=== PATIENT | female | born 1965 | race American Indian/Alaskan Native ===

== ENCOUNTER 2017-09-28 14:01 | Emergency (ER) | payer OTHER ==
[2017-09-28 14:01] VITALS: BMI 40.4
[2017-09-28 14:24] VITALS: BP 131/88; PULSE 91; RESP 17; TEMP 98.1; O2SAT 100
--- NOTE | 2017-09-28 15:47 | ED PDOC ---
Arrival/HPI - General Chief Complaint: Back Pain Time Seen by Provider: 09/28/17 14:08 Historian: Patient - History of Present Illness Narrative History of Present Illness (Text): 09/28/17 15:30 A 52 year old female, whose past medical history includes osteoarthritis, presents to the emergency department complaining of strained lower back. 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 Patient notes pain is significant on left lower back without any referral. Patient has no other complaints. Denies trauma, altered sensation down the legs, or change in motor or gait. PMD: Dr. Chris Dailey 09/29/17 12:26 Time/Duration: Prior to Arrival Symptom Onset: Sudden Symptom Course: Unchanged Quality: Aching, Stabbing Severity Level: 6 Activities at Onset: Other (work) Context: Work Past Medical History - Provider Review Nursing Documentation Reviewed: Yes - Travel History Have you recently traveled outside [place] w/in the past 3 mons?: No - Past History Past History: No Previous - Infectious Disease Hx of Infectious Diseases: None - Tetanus Immunization Tetanus Immunization: Up to Date - Reproductive Currently : No - Cardiac Hx Cardiac Disorders: Yes Hx Hypertension: Yes - Pulmonary Hx Respiratory Disorders: Yes Hx Asthma: Yes (Started as a child) - Neurological Hx Neurological Disorder: No - HEENT Hx HEENT Disorder: No - Renal Hx Renal Disorder: No - Endocrine/Metabolic Hx Endocrine Disorders: No - Hematological/Oncological Hx Blood Disorders: No - Integumentary Hx Dermatological Disorder: No - Musculoskeletal/Rheumatological Hx Musculoskeletal Disorders: Yes - Gastrointestinal Hx Gastrointestinal Disorders: Yes Hx Gastroesophageal Reflux: Yes - Genitourinary/Gynecological Hx Genitourinary Disorders: No - Psychiatric Hx Psychophysiologic Disorder: No Hx Emotional Abuse: No Hx Physical Abuse: No Hx Substance Use: No - Surgical History Hx Orthopedic Surgery: Yes - Anesthesia Hx Anesthesia: Yes Hx Anesthesia Reactions: No Hx Malignant Hyperthermia: No - Suicidal Assessment Feels Threatened In Home Enviroment: No Family/Social History - Physician Review Nursing Documentation Reviewed: Yes Family/Social History: No Known Family HX Smoking Status: Never Smoked Hx Alcohol Use: Yes (SOCIALLY) Hx Substance Use: No Hx Substance Use Treatment: No Allergies/Home Meds Allergies/Adverse Reactions: Allergies No Known Allergies Allergy (Verified 09/16/16 08:50) Home Medications: Home Meds Medication Instructions Recorded Confirmed Furosemide [Lasix] 40 mg PO DAILY 05/28/12 09/28/17 Albuterol Sulfate [Albuterol 2 puff IH DAILY 04/16/13 09/28/17 Sulfate Hfa] Metoprolol Tartrate [Lopressor] 0 mg PO BID 09/16/16 09/28/17 Potassium Gluconate [Potassium] 0 mg PO DAILY 09/16/16 09/28/17 Review of Systems - Physician Review All systems were reviewed & negative as marked: Yes - Review of Systems Constitutional: absent: Other (no other complaints given by patient.) Eyes: Normal ENT: Normal Respiratory: Normal Cardiovascular: Normal Gastrointestinal: Normal Genitourinary Female: Normal Musculoskeletal: Back Pain (lower back strain while lifting patient here at [facility] [place]) Skin: Normal Neurological: Normal Endocrine: Normal Hemo/Lymphatic: Normal Psychiatric: Normal Physical Exam Vital Signs Reviewed: Yes Vital Signs Temp Pulse Resp BP Pulse Ox 09/28/17 14:23 98.1 F 91 H 17 131/88 100 Temperature: Afebrile Blood Pressure: Normal Pulse: Regular Respiratory Rate: Normal Appearance: Positive for: Well-Appearing Pain Distress: None Mental Status: Positive for: Alert and Oriented X 3 - Systems Exam Head: Present: Atraumatic, Normocephalic Pupils: Present: PERRL Extroacular Muscles: Present: EOMI Conjunctiva: Present: Normal Mouth: Present: Moist Mucous Membranes Neck: Present: Normal Range of Motion Respiratory/Chest: Present: Clear to Auscultation, Good Air Exchange. No: Respiratory Distress, Accessory Muscle Use Cardiovascular: Present: Regular Rate and Rhythm, Normal S1, S2. No: Murmurs Abdomen: Present: Normal Bowel Sounds. No: Tenderness, Distention, Peritoneal Signs Back: Present: Paraspinal Tenderness (lumbar paraspinal tenderness on left side) Upper Extremity: Present: NORMAL PULSES (+2 ) Lower Extremity: Present: NORMAL PULSES (+2), Tenderness (tenderness to SI joint ), Neurovascularly Intact, Other (reflexes +2 bilaterally; negative straight leg test; motor strength 5:5 x 4.) Neurological: Present: GCS=15, CN II-XII Intact, Speech Normal Skin: Present: Warm, Dry, Normal Color. No: Rashes Psychiatric: Present: Alert, Oriented x 3, Normal Insight, Normal Concentration Medical Decision Making ED Course and Treatment: 09/28/17 15:35 Impression 52 year old female for lower back strain. Physical exam shows point tenderness to SI joint; lumbar paraspinal tender(left side); neurovascularly intact; reflexes +2 bilaterally; +2 pulses to all extremities; negative straight leg test; motor strength 5:5 x 4. Plan: -- Reassess and disposition Prior Visits: Notes and results from previous visits were reviewed. Patient was last seen in the emergency department on 09/16/2016 for elevated blood sugar. Patient was discharged home. Progress Notes: Pt was examined and results were discussed; advised pt to have either a toradolinjection for pain and inflammation or be given NSAIDs for home; pt declined injection and did not want further testing done. Pt was asked to wait until her discharge papers however pt left without medical release. 09/29/17 02:31 - Scribe Statement The provider has reviewed the documentation as recorded by the Malika Kenny Provider Scribe Attestation: All medical record entries made by the Scribe were at my direction and personally dictated by me. I have reviewed the chart and agree that the record accurately reflects my personal performance of the history, physical exam, medical decision making, and the department course for this patient. I have also personally directed, reviewed, and agree with the discharge instructions and disposition. Disposition/Present on Arrival - Present on Arrival Any Indicators Present on Arrival: Yes History of DVT/PE: No History of Uncontrolled Diabetes: No Urinary Catheter: No History of Decub. Ulcer: No History Surgical Site Infection Following: None - Disposition Have Diagnosis and Disposition been Completed?: Yes Diagnosis: Sacro-iliac pain, Sprain and strain of lumbosacral joint/ligament Disposition: LEFT W/O TREATMENT - ER ONLY Disposition Time: 15:30 (Pt left after examination) Patient Plan: Discharge Condition: GOOD Discharge Instructions (ExitCare): Sacroiliitis (ED) Referrals: Chris Dailey MD [Primary Care Provider] - Follow up with primary Forms: Flypaper (Gabonese)
== END 2017-09-28 15:15 | disposition left against medical advice (07) ==
LOC: ED 14:01
DX: S39.012A Strain of muscle, fascia and tendon of lower back, initial encounter (principal); S33.5XXA Sprain of ligaments of lumbar spine, initial encounter; X50.9XXA Other and unspecified overexertion or strenuous movements or postures, initial encounter; Y92.239 Unspecified place in hospital as the place of occurrence of the external cause; Y93.F2 Activity, caregiving, lifting; Y99.0 Civilian activity done for income or pay; M53.3 Sacrococcygeal disorders, not elsewhere classified; I10 Essential (primary) hypertension

== ENCOUNTER 2018-10-15 06:48 | Inpatient (IN) | payer OTHER ==
[2018-10-15] MEDS: Albuterol-Ipratrop 3 mg / 0.5 (3 ml) UD IH SCH ×5 (06:55→21:13)
[2018-10-15 07:36] LABS: ALB/GLOB RATIO 1.4 (1.1-1.8); ALBUMIN 4.6 g/dL (3.0-4.8); ALT/SGPT 18 U/L (7-56); AST/SGOT 22 U/L (14-36); BLOOD UREA NITROGEN 10 mg/dL (7-21); CALCIUM 8.8 mg/dL (8.4-10.5); GFR NON-AFRICAN AMERICAN > 60
[2018-10-15 07:37] LABS: BASO # 0.06 K/mm3 (0.0-2.0); BASO % 1.3 % (0.0-3.0); EOS # 0.3 (0.0-0.7); EOS % 6.1 % (1.5-5.0); HEMOGLOBIN 12.9 g/dL (12.0-16.0); LYMPH # 0.9 (1.2-3.4); MEAN CELL VOLUME 81.2 fl (80.0-105.0); MEAN CORPUSCULAR HEMOGLOBIN 26.9 pg (25.0-35.0); MEAN CORPUSCULAR HGB CONC 33.2 g/dl (31.0-37.0); MEAN PLATELET VOLUME 9.6 fl (7.0-11.0); MONO # 0.5 (0.1-0.6); MONO % 9.9 % (1.0-6.0); RBC 4.79 10^6/uL (3.5-6.1); RED CELL DISTRIBUTION WIDTH 13.8 % (11.5-14.5); WHITE BLOOD COUNT 4.7 10^3/uL (4.5-11.0)
--- NOTE | 2018-10-15 07:41 | ED PDOC ---
Arrival/HPI - General Chief Complaint: Shortness Of Breath Time Seen by Provider: 10/15/18 07:14 Historian: Patient - History of Present Illness Narrative History of Present Illness (Text): 10/15/18 07:39 53 year old female with past medical history of asthma, hypertension, and osteoarthritis, presents to emergency department complaining of an asthmatic episode earlier this morning. Patient reports using inhaler and nebulizer last night with mild temporary improvement, but states that her shortness of breath worsened this morning. She reports that she has a cold and congestion, which trigger her asthma. Patient notes that she has been hospitalized for asthma in the past. Patient denies any fevers, headache, dizziness, chest pain, abdominal pain, nausea, vomiting, diarrhea, back pain, neck pain, or any other complaints. Time/Duration: Other (this morning) Symptom Onset: Gradual Symptom Course: Unchanged Activities at Onset: Light Context: Home Past Medical History - Provider Review Nursing Documentation Reviewed: Yes - Past History Past History: No Previous - Infectious Disease Hx of Infectious Diseases: None - Tetanus Immunization Tetanus Immunization: Up to Date - Reproductive Currently : No - Cardiac Hx Cardiac Disorders: Yes Hx Hypertension: Yes - Pulmonary Hx Respiratory Disorders: Yes Hx Asthma: Yes (Started as a child) - Neurological Hx Neurological Disorder: No - HEENT Hx HEENT Disorder: No - Renal Hx Renal Disorder: No - Endocrine/Metabolic Hx Endocrine Disorders: No - Hematological/Oncological Hx Blood Disorders: No - Integumentary Hx Dermatological Disorder: No - Musculoskeletal/Rheumatological Hx Musculoskeletal Disorders: Yes - Gastrointestinal Hx Gastrointestinal Disorders: Yes Hx Gastroesophageal Reflux: Yes - Genitourinary/Gynecological Hx Genitourinary Disorders: No - Psychiatric Hx Psychophysiologic Disorder: No Hx Emotional Abuse: No Hx Physical Abuse: No Hx Substance Use: No - Surgical History Hx Orthopedic Surgery: Yes - Anesthesia Hx Anesthesia: Yes Hx Anesthesia Reactions: No Hx Malignant Hyperthermia: No - Suicidal Assessment Feels Threatened In Home Enviroment: No Family/Social History - Physician Review Nursing Documentation Reviewed: Yes Family/Social History: Unknown Family HX Smoking Status: Never Smoked Hx Alcohol Use: Yes (SOCIALLY) Hx Substance Use: No Hx Substance Use Treatment: No Allergies/Home Meds Allergies/Adverse Reactions: Allergies No Known Allergies Allergy (Verified 10/15/18 06:53) Home Medications: Home Meds Medication Instructions Recorded Confirmed RX: Furosemide [Lasix] 40 mg PO DAILY 05/28/12 10/15/18 RX: Albuterol Sulfate [Albuterol 2 puff IH DAILY 04/16/13 10/15/18 Sulfate Hfa] Metoprolol Tartrate [Lopressor] 0 mg PO BID 09/16/16 10/15/18 Potassium Gluconate [Potassium] 0 mg PO DAILY 09/16/16 10/15/18 Review of Systems - Physician Review All systems were reviewed & negative as marked: Yes - Review of Systems Constitutional: absent: Fevers Respiratory: SOB, Wheezing, Other (cold, congestion) Cardiovascular: absent: Chest Pain Gastrointestinal: absent: Abdominal Pain, Diarrhea, Nausea, Vomiting Genitourinary Female: absent: Urine Output Changes Musculoskeletal: absent: Back Pain, Neck Pain Skin: absent: Rash Neurological: absent: Headache, Dizziness Physical Exam Vital Signs Reviewed: Yes Vital Signs Temp Pulse Resp BP Pulse Ox 10/15/18 07:15 98.1 F 99 H 24 138/72 100 10/15/18 06:54 20 98 Temperature: Afebrile Blood Pressure: Normal Pulse: Regular Respiratory Rate: Normal Appearance: Positive for: Well-Appearing, Non-Toxic, Comfortable Pain Distress: None Mental Status: Positive for: Alert and Oriented X 3 - Systems Exam Head: Present: Atraumatic, Normocephalic Pupils: Present: PERRL Extroacular Muscles: Present: EOMI Conjunctiva: Present: Normal Mouth: Present: Moist Mucous Membranes Neck: Present: Normal Range of Motion Respiratory/Chest: Present: Wheezes (diffused wheezing ) Cardiovascular: Present: Regular Rate and Rhythm, Normal S1, S2. No: Murmurs Abdomen: No: Tenderness, Distention, Peritoneal Signs Back: Present: Normal Inspection Upper Extremity: Present: Normal Inspection. No: Cyanosis, Edema Lower Extremity: Present: Normal Inspection. No: Edema Neurological: Present: GCS=15, CN II-XII Intact, Speech Normal Skin: Present: Warm, Dry, Normal Color. No: Rashes Psychiatric: Present: Alert, Oriented x 3, Normal Insight, Normal Concentration Medical Decision Making ED Course and Treatment: 10/15/18 07:55 Impression: 53 year old female presents to emergency department following an asthmatic episode earlier this morning. Plan: -- Labs -- Chest X-ray -- Influenza -- Reassess and disposition Prior Visits: Notes and results from previous visits were reviewed. Progress Notes: 10/15/18 09:49 ashma exacerbation persistent wheezing acceped by dr omer bedside. cxr neg , influenza neg. - Lab Interpretations Lab Results: Total Bilirubin 0.4 mg/dL (0.2-1.3) 10/15/18 07:00 AST 22 U/L (14-36) 10/15/18 07:00 ALT 18 U/L (7-56) 10/15/18 07:00 Alkaline Phosphatase 56 U/L (38-126) 10/15/18 07:00 Total Protein 8.0 g/dL (5.8-8.3) 10/15/18 07:00 Albumin 4.6 g/dL (3.0-4.8) 10/15/18 07:00 Globulin 3.4 gm/dL 10/15/18 07:00 Albumin/Globulin Ratio 1.4 (1.1-1.8) 10/15/18 07:00 - RAD Interpretation Narrative RAD Interpretations (Text): 10/15/18 09:08 Chest X-ray, reviewed by radiologist: IMPRESSION: No active disease. Radiology Orders: 10/15/18 07:18 CHEST PORTABLE [RAD] Stat Chute Operator: Radiologist - EKG Interpretation EKG Interpretation (Text): 10/15/18 07:57 EKG: Ordered, reviewed, and independently interpreted the EKG. Rate : 102 BPM Interpretation : No ST-segment elevations or depressions, no T-wave changes, sinus tachycardia Interpreted by ED Physician: Yes Type: 12 lead EKG - Medication Orders Current Medication Orders: Discontinued Medications Albuterol/Ipratropium (Duoneb 3 Mg/0.5 Mg (3 Ml) Ud) 3 ml IH Q15M KIERA Stop: 10/15/18 07:31 Last Admin: 10/15/18 07:26 Dose: 3 ml Methylprednisolone (Solu-Medrol) 125 mg IVP STAT STA Stop: 10/15/18 07:19 Last Admin: 10/15/18 07:26 Dose: 125 mg IVP Administration Document 10/15/18 07:26 SRE (Rec: 10/15/18 07:26 SRE [id number]) Charges for Administration # of IVP Administrations 1 - Scribe Statement The provider has reviewed the documentation as recorded by the Scribe Ashwin Serra All medical record entries made by the Malika were at my direction and personally dictated by me. I have reviewed the chart and agree that the record accurately reflects my personal performance of the history, physical exam, medical decision making, and the department course for this patient. I have also personally directed, reviewed, and agree with the discharge instructions and disposition. Disposition/Present on Arrival - Present on Arrival Any Indicators Present on Arrival: No History of DVT/PE: No History of Uncontrolled Diabetes: No Urinary Catheter: No History of Decub. Ulcer: No History Surgical Site Infection Following: None - Disposition Have Diagnosis and Disposition been Completed?: Yes Diagnosis: Asthma attack Disposition: HOSPITALIZED Disposition Time: 09:30 Patient Problems: Current Active Problems Problem Status Onset Asthma attack Acute Condition: STABLE
[2018-10-15 07:52] LABS: INR 1.03; PARTIAL THROMBOPLASTIN TIME 32.2 Seconds (26.9-38.3); PROTHROMBIN TIME 11.6 SECONDS (9.4-12.5)
--- NOTE | 2018-10-15 09:05 | RAD ---
Date of service: 10/15/2018 HISTORY: asthma COMPARISON: 09/16/2016 FINDINGS: LUNGS: No active pulmonary disease. PLEURA: No significant pleural effusion identified, no pneumothorax apparent. CARDIOVASCULAR: No aortic atherosclerotic calcification present. Normal cardiac size. No pulmonary vascular congestion. OSSEOUS STRUCTURES: No significant abnormalities. VISUALIZED UPPER ABDOMEN: Normal. OTHER FINDINGS: None. IMPRESSION: No active disease.
[2018-10-15] MEDS: Albuterol-Ipratrop 3 mg / 0.5 (3 ml) UD IH PRN ×2 (11:22→11:28)
[2018-10-15 11:47] VITALS: BMI 40.2
[2018-10-15] MEDS: Insulin Reg-LOW-Coverage SC SCH ×3 (12:49→22:32)
[2018-10-15] MEDS: Amoxicillin-Clav 875-125 mg Tab PO SCH ×2 (12:50→22:31)
--- NOTE | 2018-10-15 14:11 | HP ---
DATE OF EXAM: 10/15/2018 CHIEF COMPLAINT AND HISTORY OF PRESENT ILLNESS: This is a 53-year-old female who has come into the hospital complaining of shortness of breath that yesterday. She states she started having wheezing. She was taking her inhaler, but it was not helping. She was also coughing. She denies any chest pain. She states she did have some tightness in her chest. She used her nebulizer as well, but only had temporary relief. She states the shortness of breath was getting worse early this morning, so she came in for further evaluation. She has congestion. She denies any fever or headaches. No dizziness. No nausea, no vomiting, no abdominal pain, no back pain. No dysuria or frequency. No nocturia. All other review of systems are within normal limits except what was mentioned. PAST MEDICAL HISTORY: Hypertension and GERD. SOCIAL HISTORY: She denies smoking. She drink socially. FAMILY HISTORY: Noncontributory. PAST SURGICAL HISTORY: She had a partial left knee replacement done. She had a Pap smear. She had hemorrhoid surgery. PHYSICAL EXAMINATION: VITAL SIGNS: Temperature is 98, pulse of 89, blood pressure 115/68, respirations 20, O2 saturation 97%. Height is 5 feet 7 inches, weight is 257 pounds, BMI is 40.3. GENERAL: The patient is lying in bed, comfortable, and in no acute distress. HEENT: Atraumatic and normocephalic. Anicteric sclerae. Moist mucosa. [place] conjunctivae. No oral lesions. NECK: No JVD, anterior and posterior adenopathy, thyromegaly, or bruits. CARDIOVASCULAR: S1 and S2 regular. No murmurs, rubs or gallops. LUNGS: She has good bilateral air entry. Positive for wheezing bilaterally. No rales or rhonchi. ABDOMEN: Bowel sounds are positive. Soft, nontender and nondistended. No hepatosplenomegaly. No rebound and no guarding EXTREMITIES: No cyanosis, clubbing, or edema. NEUROLOGIC: No facial asymmetry. Tongue is midline. No uvula deviation. Power is 5/5 upper extremities and lower extremities. Sensation intact in upper extremities and lower extremities. PSYCHIATRIC: She is awake, alert and oriented x3. No anxiety or depression. She has normal affect. GENITOURINARY: No CVA tenderness. VASCULAR: 2+ pulses in the carotid pulses and pedal pulses. SKIN: No erythema or nodules. SPINE: Shows normal curvature. LABORATORY DATA: White count of 4.7, hemoglobin 12.9, INR is 1.03. Sodium is 138, potassium is 3.5, creatinine is 0.6, AST and ALT is 22 and 18. Serology shows influenza is negative. Chest x-ray shows no active disease. ASSESSMENT: 1. Acute asthma exacerbation. 2. Obese with body mass index of 40. 3. Hypertension. 4. Dyslipidemia. PLAN: The patient is currently comfortable. She is her nebulizer treatment. She is receiving Lasix daily. I will hold her metoprolol. I will place on insulin sliding scale because of steroid. Her sugars may increase. She states she is feeling better this morning after she was given nebulizer treatment, I will continue the nebulizer treatments and also give her steroids. The patient's daughter was at the bedside and overheard plan of care. I will also placed her on Augmentin. I will repeat her blood work tomorrow. She is on her regular diet. She is an employee at the hospital. Chris Dailey MD
--- NOTE | 2018-10-15 20:52 | CARD ---
APPROVED REPORT Date of service: 10/15/2018 EKG Measurement Heart [id number] <Conclusion> Sinus tachycardia Possible Left atrial enlargement NDSTT abnormalities Borderline ECG
[2018-10-16] MEDS: Albuterol-Ipratrop 3 mg / 0.5 (3 ml) UD IH PRN ×2 (06:05→11:29)
[2018-10-16] MEDS: Albuterol-Ipratrop 3 mg / 0.5 (3 ml) UD IH SCH ×3 (07:08→21:24)
[2018-10-16 07:16] LABS: HEMOGLOBIN 12.4 g/dL (12.0-16.0); MEAN CELL VOLUME 80.6 fl (80.0-105.0); MEAN CORPUSCULAR HEMOGLOBIN 26.7 pg (25.0-35.0); MEAN CORPUSCULAR HGB CONC 33.1 g/dl (31.0-37.0); MEAN PLATELET VOLUME 9.5 fl (7.0-11.0); RBC 4.65 10^6/uL (3.5-6.1); WHITE BLOOD COUNT 7.7 10^3/uL (4.5-11.0)
[2018-10-16 07:35] LABS: ALB/GLOB RATIO 1.4 (1.1-1.8); ALBUMIN 4.6 g/dL (3.0-4.8); ALT/SGPT 20 U/L (7-56); AST/SGOT 19 U/L (14-36); BLOOD UREA NITROGEN 16 mg/dL (7-21); CALCIUM 9.5 mg/dL (8.4-10.5); GFR NON-AFRICAN AMERICAN > 60
[2018-10-16] MEDS: Amoxicillin-Clav 875-125 mg Tab PO SCH ×2 (09:18→22:26)
[2018-10-16] MEDS: MethylPREDNISolone 40 mg Vial IVP SCH (09:18)
[2018-10-16] MEDS: Insulin Reg-LOW-Coverage SC SCH ×4 (09:20→22:35)
--- NOTE | 2018-10-16 13:13 | CP.PCM.PN ---
<Rodney Shore - Last Filed: 10/16/18 13:14> Subjective - Date & Time of Evaluation Date of Evaluation: 10/16/18 Time of Evaluation: 08:00 - Subjective Subjective: Medicine progress note for Dr Dailey: Patient seen and examined at bedside. No acute events overnight. Patient still states that she is wheezing however denies breath at this time. Denies any chest pain. No other complaints. 12 point ROS performed and negative other than stated above. Objective - Vital Signs/Intake and Output Vital Signs (last 24 hours): Temp Pulse Resp BP Pulse Ox 97.4 F L 101 H 20 148/93 H 96 10/16/18 06:00 10/16/18 06:00 10/16/18 06:00 10/16/18 11:52 10/16/18 06:00 Intake and Output: 10/16/18 10/16/18 06:59 18:59 Intake Total 620 Balance 620 - Medications Medications: Current Medications Albuterol/Ipratropium (Duoneb 3 Mg/0.5 Mg (3 Ml) Ud) 3 ml IH TIDRESP [facility] Last Admin: 10/16/18 07:08 Dose: 3 ml Albuterol/Ipratropium (Duoneb 3 Mg/0.5 Mg (3 Ml) Ud) 3 ml IH Q2H PRN PRN Reason: Shortness of Breath Last Admin: 10/16/18 11:29 Dose: 3 ml Amoxicillin/Clavulanate Potassium (Augmentin 875 Mg-125 Mg Tab) 1 tab PO Q12 KIERA; Protocol Last Admin: 10/16/18 09:18 Dose: 1 tab Furosemide (Lasix) 40 mg PO DAILY [facility] Last Admin: 10/16/18 11:52 Dose: 40 mg Insulin Human Regular (Humulin R Low) 0 units SC ACHS [facility]; Protocol Last Admin: 10/16/18 11:52 Dose: 3 units Metformin HCl (Glucophage) 500 mg PO BIDWM [facility] Last Admin: 10/16/18 09:18 Dose: 500 mg Methylprednisolone (Solu-Medrol) 40 mg IVP DAILY [facility] Last Admin: 10/16/18 09:18 Dose: 40 mg - Labs Labs: 10/16/18 06:30 10/16/18 06:30 PT 11.6 SECONDS (9.4-12.5) 10/15/18 07:00 INR 1.03 10/15/18 07:00 APTT 32.2 Seconds (26.9-38.3) 10/15/18 07:00 - Constitutional Appears: No Acute Distress - Head Exam Head Exam: ATRAUMATIC, NORMOCEPHALIC - Eye Exam Eye Exam: EOMI, PERRL - ENT Exam ENT Exam: Mucous Membranes Moist - Respiratory Exam Respiratory Exam: Clear to Ausculation Bilateral, Wheezes. absent: Rales Additional comments: b/l wheezing, R>L - Cardiovascular Exam Cardiovascular Exam: REGULAR RHYTHM, +S1, +S2 - GI/Abdominal Exam GI & Abdominal Exam: Soft, Normal Bowel Sounds. absent: Distended, Tenderness - Extremities Exam Extremities Exam: absent: Calf Tenderness, Pedal Edema - Neurological Exam Neurological Exam: Alert, Awake, Oriented x3 - Psychiatric Exam Psychiatric exam: Normal Mood - Skin Skin Exam: Dry, Warm Assessment and Plan - Assessment and Plan (Free Text) Assessment: 1. Acute asthma exacerbation 2. URI 3. Obesity with BMI of 40 4. Hypertension 5. Hyperlipidemia Patient is still wheezing bilaterally right > left. Continue with duonebs 3 times daily and every 2 hours as needed. CXR has been negative. Cont with Solumedrol 40 mg daily. Continue with Augmentin for URI. Continue with home Lasix 40 mg daily for her hypertension. Counseled on heart healthy diet and exercise. Continue to monitor for any changes. Case and plan was reviewed and discussed with Dr. Dailey <Chris Dailey - Last Filed: 10/16/18 20:19> Objective - Vital Signs/Intake and Output Vital Signs (last 24 hours): Temp Pulse Resp BP Pulse Ox 97.4 F L 101 H 20 148/93 H 96 10/16/18 06:00 10/16/18 06:00 10/16/18 06:00 10/16/18 11:52 10/16/18 06:00 - Medications Medications: Current Medications Albuterol/Ipratropium (Duoneb 3 Mg/0.5 Mg (3 Ml) Ud) 3 ml IH TIDRESP [facility] Last Admin: 10/16/18 13:10 Dose: 3 ml Albuterol/Ipratropium (Duoneb 3 Mg/0.5 Mg (3 Ml) Ud) 3 ml IH Q2H PRN PRN Reason: Shortness of Breath Last Admin: 10/16/18 11:29 Dose: 3 ml Amoxicillin/Clavulanate Potassium (Augmentin 875 Mg-125 Mg Tab) 1 tab PO Q12 [facility]; Protocol Last Admin: 10/16/18 09:18 Dose: 1 tab Furosemide (Lasix) 40 mg PO DAILY [facility] Last Admin: 10/16/18 11:52 Dose: 40 mg Insulin Human Regular (Humulin R Low) 0 units SC ACHS [facility]; Protocol Last Admin: 10/16/18 16:36 Dose: 4 units Metformin HCl (Glucophage) 500 mg PO BIDWM [facility] Last Admin: 10/16/18 16:37 Dose: 500 mg Methylprednisolone (Solu-Medrol) 40 mg IVP DAILY [facility] Last Admin: 10/16/18 09:18 Dose: 40 mg - Labs Labs: 10/16/18 06:30 10/16/18 06:30 PT 11.6 SECONDS (9.4-12.5) 10/15/18 07:00 INR 1.03 10/15/18 07:00 APTT 32.2 Seconds (26.9-38.3) 10/15/18 07:00 Assessment and Plan - Assessment and Plan (Free Text) Assessment: Pt seen and examined by me. I have reviewed the note of the medical charge entry specialist and I agree with it. I have discussed the assessment and plan with the resident. I have reviewed the medications and the last labs. Pt with acute Asthma and is on Duoneb and Solumedrol. She is on Augmentin for her URI. She is on Lasix and will be restarted. Eating well. No pain.
[2018-10-17] MEDS: Albuterol-Ipratrop 3 mg / 0.5 (3 ml) UD IH SCH ×3 (07:20→19:46)
[2018-10-17] MEDS: Insulin Reg-LOW-Coverage SC SCH ×4 (07:35→21:51)
--- NOTE | 2018-10-17 10:52 | CP.PCM.PN ---
<Rodney Shore - Last Filed: 10/17/18 10:54> Subjective - Date & Time of Evaluation Date of Evaluation: 10/17/18 Time of Evaluation: 07:00 - Subjective Subjective: Medicine progress note for Dr Dailey: Patient seen and examined at bedside. No acute events overnight. She states that she is wheezing however somewhat better than yesterday. Denies any chest pain. No other complaints. 12 point ROS performed and negative other than stated above. Objective - Vital Signs/Intake and Output Vital Signs (last 24 hours): Temp Pulse Resp BP Pulse Ox 97.7 F 90 20 161/99 H 98 10/17/18 06:00 10/17/18 06:00 10/17/18 06:00 10/17/18 06:00 10/17/18 06:00 - Medications Medications: Current Medications Albuterol/Ipratropium (Duoneb 3 Mg/0.5 Mg (3 Ml) Ud) 3 ml IH TIDRESP [facility] Last Admin: 10/17/18 07:20 Dose: 3 ml Albuterol/Ipratropium (Duoneb 3 Mg/0.5 Mg (3 Ml) Ud) 3 ml IH Q2H PRN PRN Reason: Shortness of Breath Last Admin: 10/16/18 11:29 Dose: 3 ml Amoxicillin/Clavulanate Potassium (Augmentin 875 Mg-125 Mg Tab) 1 tab PO Q12 [facility]; Protocol Last Admin: 10/16/18 22:26 Dose: 1 tab Furosemide (Lasix) 40 mg PO DAILY [facility] Last Admin: 10/16/18 11:52 Dose: 40 mg Insulin Human Regular (Humulin R Low) 0 units SC ACHS [facility]; Protocol Last Admin: 10/16/18 22:35 Dose: Not Given Metformin HCl (Glucophage) 500 mg PO BIDWM [facility] Last Admin: 10/17/18 08:36 Dose: 500 mg Methylprednisolone (Solu-Medrol) 40 mg IVP DAILY [facility] Last Admin: 10/16/18 09:18 Dose: 40 mg - Labs Labs: 10/16/18 06:30 10/16/18 06:30 PT 11.6 SECONDS (9.4-12.5) 10/15/18 07:00 INR 1.03 10/15/18 07:00 APTT 32.2 Seconds (26.9-38.3) 10/15/18 07:00 - Constitutional Appears: No Acute Distress - Head Exam Head Exam: ATRAUMATIC, NORMOCEPHALIC - Eye Exam Eye Exam: EOMI - ENT Exam ENT Exam: Mucous Membranes Moist - Respiratory Exam Respiratory Exam: Clear to Ausculation Bilateral, Wheezes Additional comments: b/l wheezes - Cardiovascular Exam Cardiovascular Exam: REGULAR RHYTHM, +S1, +S2 - GI/Abdominal Exam GI & Abdominal Exam: Soft. absent: Tenderness - Extremities Exam Extremities Exam: absent: Calf Tenderness, Pedal Edema - Neurological Exam Neurological Exam: Alert, Awake, Oriented x3 - Psychiatric Exam Psychiatric exam: Normal Mood - Skin Skin Exam: Dry, Warm Assessment and Plan - Assessment and Plan (Free Text) Assessment: 1. Acute asthma exacerbation 2. URI 3. Obesity with BMI of 40 4. Hypertension 5. Hyperlipidemia Patient is still wheezing bilaterally. Increase Solumedrol to 80 mg daily. Continue with duonebs TID and every 2 hours as needed. Continue with Augmentin for URI. Continue with home Lasix 40 mg daily for her hypertension. Counseled on heart healthy diet and exercise. Continue to monitor for any changes. Case and plan was reviewed and discussed with Dr. Dailey <Chris Dailey - Last Filed: 10/17/18 19:16> Objective - Vital Signs/Intake and Output Vital Signs (last 24 hours): Temp Pulse Resp BP Pulse Ox 98 F 125 H 20 152/89 H 100 10/17/18 14:00 10/17/18 14:00 10/17/18 14:00 10/17/18 14:00 10/17/18 14:00 - Medications Medications: Current Medications Albuterol/Ipratropium (Duoneb 3 Mg/0.5 Mg (3 Ml) Ud) 3 ml IH TIDRESP [facility] Last Admin: 10/17/18 14:02 Dose: Not Given Albuterol/Ipratropium (Duoneb 3 Mg/0.5 Mg (3 Ml) Ud) 3 ml IH Q2H PRN PRN Reason: Shortness of Breath Last Admin: 10/16/18 11:29 Dose: 3 ml Amoxicillin/Clavulanate Potassium (Augmentin 875 Mg-125 Mg Tab) 1 tab PO Q12 [facility]; Protocol Last Admin: 10/17/18 10:58 Dose: 1 tab Furosemide (Lasix) 40 mg PO DAILY [facility] Last Admin: 10/17/18 10:58 Dose: 40 mg Insulin Human Regular (Humulin R Low) 0 units SC ACHS [facility]; Protocol Last Admin: 10/17/18 16:46 Dose: 4 units Metformin HCl (Glucophage) 500 mg PO BIDWM [facility] Last Admin: 10/17/18 17:47 Dose: 500 mg Methylprednisolone (Solu-Medrol) 40 mg IVP DAILY [facility] Last Admin: 10/17/18 10:59 Dose: 40 mg - Labs Labs: 10/16/18 06:30 10/16/18 06:30 PT 11.6 SECONDS (9.4-12.5) 10/15/18 07:00 INR 1.03 10/15/18 07:00 APTT 32.2 Seconds (26.9-38.3) 10/15/18 07:00 Assessment and Plan - Assessment and Plan (Free Text) Assessment: Pt seen and examined by me. I have reviewed the note of the medical research tech and I agree with it. I have discussed the assessment and plan with the resident. I have reviewed the medications and the last labs.Pt with acute Asthma that is improving. She still is wheezing. I will increase her solumedrol to 80 mg. She is on Lasix and will be continued. Pt will continue with Augmentin for her URI. She is on Duoneb treatments. She is ambulating. No pain. Eating well.
[2018-10-17] MEDS: Amoxicillin-Clav 875-125 mg Tab PO SCH ×2 (10:58→21:30)
[2018-10-17] MEDS: MethylPREDNISolone 40 mg Vial IVP SCH (10:59)
[2018-10-17] MEDS ORDERED: MethylPREDNISolone 40 mg Vial IVP STA (12:39)
[2018-10-18] MEDS: Albuterol-Ipratrop 3 mg / 0.5 (3 ml) UD IH SCH ×2 (07:42→13:07)
[2018-10-18] MEDS: Insulin Reg-LOW-Coverage SC SCH (07:48)
[2018-10-18 08:58] VITALS: BP 137/80; PULSE 98; RESP 20; TEMP 97.6; O2SAT 99
[2018-10-18] MEDS: Amoxicillin-Clav 875-125 mg Tab PO SCH (09:46)
[2018-10-18] MEDS: MethylPREDNISolone 40 mg Vial IVP SCH (09:48)
[2018-10-18] MEDS ORDERED: Enoxaparin 40 mg Syringe SC SCH (10:00)
--- NOTE | 2018-10-18 13:26 | CP.PCM.DIS ---
Provider - Provider Date of Admission: 10/15/18 08:05 Attending physician: Chris Dailey MD Primary care physician: Chris Dailey MD Consults: 10/15/18 11:47 Transition In Care/Readmission Reduction Routine Comment: Physician Instructions: Reason For Exam: SOB Time Spent in preparation of Discharge (in minutes): 45 Hospital Course - Lab Results Lab Results: Most Recent Lab Values WBC 7.7 10^3/uL (4.5-11.0) D 10/16/18 06:30 RBC 4.65 10^6/uL (3.5-6.1) 10/16/18 06:30 Hgb 12.4 g/dL (12.0-16.0) 10/16/18 06:30 Hct 37.5 % (36.0-48.0) 10/16/18 06:30 MCV 80.6 fl (80.0-105.0) 10/16/18 06:30 MCH 26.7 pg (25.0-35.0) 10/16/18 06:30 MCHC 33.1 g/dl (31.0-37.0) 10/16/18 06:30 RDW 14.0 % (11.5-14.5) 10/16/18 06:30 Plt Count 312 10^3/uL (120.0-450.0) 10/16/18 06:30 MPV 9.5 fl (7.0-11.0) 10/16/18 06:30 Neut % (Auto) 63.7 % (50.0-68.0) 10/15/18 07:00 Lymph % (Auto) 19.0 % (22.0-35.0) L 10/15/18 07:00 [place] % (Auto) 9.9 % (1.0-6.0) H 10/15/18 07:00 Eos % (Auto) 6.1 % (1.5-5.0) H 10/15/18 07:00 Baso % (Auto) 1.3 % (0.0-3.0) 10/15/18 07:00 Lymph # (Auto) 0.9 (1.2-3.4) L 10/15/18 07:00 [place] # (Auto) 0.5 (0.1-0.6) 10/15/18 07:00 Eos # (Auto) 0.3 (0.0-0.7) 10/15/18 07:00 Baso # (Auto) 0.06 K/mm3 (0.0-2.0) 10/15/18 07:00 Absolute Neuts (auto) 3.01 (1.4-6.5) 10/15/18 07:00 PT 11.6 SECONDS (9.4-12.5) 10/15/18 07:00 INR 1.03 10/15/18 07:00 APTT 32.2 Seconds (26.9-38.3) 10/15/18 07:00 Sodium 136 mmol/L (132-148) 10/16/18 06:30 Potassium 3.8 mmol/L (3.6-5.0) 10/16/18 06:30 Chloride 100 mmol/L (98-107) 10/16/18 06:30 Carbon Dioxide 24 mmol/L (21-33) 10/16/18 06:30 Anion Gap 16 (10-20) 10/16/18 06:30 BUN 16 mg/dL (7-21) 10/16/18 06:30 Creatinine 0.7 mg/dl (0.7-1.2) 10/16/18 06:30 Est GFR ( Amer) > 60 10/16/18 06:30 Est GFR (Non-Af Amer) > 60 10/16/18 06:30 POC Glucose (mg/dL) 190 mg/dL (65-110) H 10/18/18 10:51 Random Glucose 259 mg/dL (70-110) H 10/16/18 06:30 Calcium 9.5 mg/dL (8.4-10.5) 10/16/18 06:30 Total Bilirubin 0.4 mg/dL (0.2-1.3) 10/16/18 06:30 AST 19 U/L (14-36) 10/16/18 06:30 ALT 20 U/L (7-56) 10/16/18 06:30 Alkaline Phosphatase 52 U/L (38-126) 10/16/18 06:30 Total Protein 7.9 g/dL (5.8-8.3) 10/16/18 06:30 Albumin 4.6 g/dL (3.0-4.8) 10/16/18 06:30 Globulin 3.3 gm/dL 10/16/18 06:30 Albumin/Globulin Ratio 1.4 (1.1-1.8) 10/16/18 06:30 Influenza Typ A,B (EIA) Negative for flu a/b (NEGATIVE) 10/15/18 07:30 - Hospital Course Hospital Course: 53 F with past medical history of asthma, GERD, hypertension and osteoarthritis presents to the ED with shortness of breath due to asthma. Patient states that she is having an asthma attack as she feels herself wheezing. Patient also complained of some cough and congestion. In the ED basic lab work was performed. Chest x-ray was negative. Patient was admitted to [facility] floor for continued treatment. Patient was started on scheduled and as needed duo nebs. She was also given IV steroid for her asthma. She was also treated for her URI with Augmentin. Today the patient's wheezing has much improved. Patient states that she is feeling much better and wants to go home. She will be discharged with a prednisone taper, Augmentin for 5 days, and albuterol pump. Patient states that she has all of her other medications at home and do not require any refills. Work note given to the patient. Diagnosis 1. Acute asthma exacerbation 2. URI 3. Obesity with BMI of 40 4. Hypertension 5. Hyperlipidemia Discharge Exam - Head Exam Head Exam: ATRAUMATIC, NORMOCEPHALIC - Eye Exam Eye Exam: EOMI - ENT Exam ENT Exam: Mucous Membranes Moist - Respiratory Exam Respiratory Exam: Clear to PA & Lateral, Wheezes Additional comments: mild diffuse wheezes - Cardiovascular Exam Cardiovascular Exam: RRR, +S1, +S2 - GI/Abdominal Exam GI & Abdominal Exam: Normal Bowel Sounds, Soft. absent: Tenderness - Neurological Exam Neurological exam: Alert, Oriented x3 - Psychiatric Exam Psychiatric exam: Normal Mood - Skin Skin Exam: Dry, Warm Discharge Plan - Discharge Medications Prescriptions: Amoxicillin/Clavulanate [Augmentin 875 MG-125 MG] 1 tab PO BID #10 tab Prednisone [Deltasone] See Taper PO DAILY 7 Days tablet - Follow Up Plan Condition: IMPROVED Disposition: HOME/ ROUTINE Instructions: Asthma, Adult (DC), Cough, Adult (DC), Avoiding Asthma Triggers, Medicines for Asthma, Asthma (DC), Asthma (GEN) Additional Instructions: If your symptoms recur come back to the ED Follow-up with your PMD within 3 days Take your medications as described Augmentin twice a day for 5 days Prednisone taper 60 mg for 3 days, 40 mg for 3 days, 20 mg for 3 days Albuterol 2 puffs every 6 hours as needed Referrals: Chris Dailey MD [Primary Care Provider] -
== END 2018-10-18 13:34 | disposition home or self-care (01) | DRG 202 ==
LOC: ED 06:48 → ERH 08:05 → 5RNO 09:55
PROVIDERS: ADMIT Internal Medicine Nephrology; ATTEND Internal Medicine Nephrology
PROC: 3E0F7GC Introduction of Other Therapeutic Substance into Respiratory Tract, Via Natural or Artificial Opening (ICD-10-PCS; principal; 2018-10-15)
DX: J45.901 Unspecified asthma with (acute) exacerbation (principal); Z68.41 Body mass index [BMI] 40.0-44.9, adult; I10 Essential (primary) hypertension; E66.9 Obesity, unspecified; E78.5 Hyperlipidemia, unspecified; J06.9 Acute upper respiratory infection, unspecified; K21.9 Gastro-esophageal reflux disease without esophagitis; M19.90 Unspecified osteoarthritis, unspecified site; Z79.899 Other long term (current) drug therapy